=== PATIENT | male | born 1995 | race Caucasian/White ===

== ENCOUNTER 2017-01-14 04:56 | Emergency (ER) | payer SELFPAY ==
[2017-01-14 05:46] VITALS: BP 164/99
[2017-01-14] MEDS ORDERED: Ketorolac 60 MG/2 ML SDV IM ONE (06:05)
--- NOTE | 2017-01-14 06:12 | EDM.PDOC ---
ED HPI GENERAL MEDICAL PROBLEM - General Chief Complaint: ENT Problem Stated Complaint: TOOTH PAIN Time Seen by Provider: 01/14/17 06:03 Source of Information: Reports: Patient, RN Notes Reviewed History Limitations: Reports: No Limitations - History of Present Illness INITIAL COMMENTS - FREE TEXT/NARRATIVE: 21-year-old gentleman presents emergency department day complaint of dental pain he broke his tooth several months ago however over the last couple days he has had increased pain and fevers Right Face Pain Score (Numeric/FACES): 9 - Related Data Allergies Allergy/AdvReac Type Severity Reaction Status Date / Time Bleach (Sodium Hypochlorite) Allergy Blisters Verified 01/14/17 05:47 cephalexin monohydrate Allergy Blisters Verified 01/14/17 05:47 [From Keflex] codeine Allergy Anaphylactic Verified 01/14/17 05:47 Shock Home Meds: Home Meds Acetaminophen [Tylenol] 650 mg PO Q6H PRN 01/14/17 [History] Ibuprofen 600 mg PO Q6H PRN 01/14/17 [History] Past Medical History Respiratory History: Reports: Asthma, Bronchitis, Recurrent, Pneumonia, Recurrent Musculoskeletal History: Reports: Fracture Other Neuro History: lac to head cleaned out in surgery in the past. Endocrine/Metabolic History: Reports: Hypothyroidism, Obesity/BMI 30+ Dermatologic History: Reports: Psoriasis - Past Surgical History HEENT Surgical History: Reports: Other (See Below) Other HEENT Surgeries/Procedures: dental fracture Social & Family History - Tobacco Use Smoking Status *Q: Never Smoker - Caffeine Use Caffeine Use: Reports: Coffee, Energy Drinks, Soda - Recreational Drug Use Recreational Drug Use: No ED ROS ENT - Review of Systems Review Of Systems: See Below Constitutional: Reports: Fever, Chills HEENT: Reports: Dental Pain Respiratory: Reports: No Symptoms Cardiovascular: Reports: No Symptoms GI/Abdominal: Reports: No Symptoms : Reports: No Symptoms ED EXAM, ENT - Physical Exam Exam: See Below Text/Narrative:: Mouth mucosa is moist and pink he does have fractured tooth #17 he is tender to the touch around the tooth Exam Limited By: No Limitations General Appearance: Alert, WD/WN, No Apparent Distress Eye Exam: Bilateral Eye: Normal Inspection Head: Atraumatic, Normocephalic Neck: Normal Inspection, Supple, Non-Tender, Full Range of Motion Respiratory/Chest: No Respiratory Distress, Lungs Clear, Normal Breath Sounds, No Accessory Muscle Use Cardiovascular: Regular Rate, Rhythm, No Murmur Course - Vital Signs Last Recorded V/S: Last Vital Signs Temp 97.7 F 01/14/17 05:44 Pulse 74 01/14/17 05:44 Resp 16 01/14/17 05:44 BP 164/99 H 01/14/17 05:44 Pulse Ox 96 01/14/17 05:44 - Orders/Labs/Meds Meds: Medications Discontinued Medications Generic Name Dose Route Start Last Admin Trade Name Ismael PRN Reason Stop Dose Admin Ketorolac Tromethamine 60 mg 01/14/17 06:05 Toradol IM 01/14/17 06:06 ONETIME ONE Departure - Departure Time of Disposition: 06:11 Disposition: Home, Self-Care 01 Condition: Good Clinical Impression: Dental abscess - Discharge Information Referrals: PCP,None [Primary Care Provider] - Additional Instructions: Take full course of antibiotics, continue to use ibuprofen for pain control, for breakthrough pain use hydrocodone please report to the dental clinic Tuesday at 8:15 - Assessment/Plan Plan: Assessment Acuity = acute Site and laterality = fractured tooth #17 concern for development of dental abscess Etiology = caries Manifestations = none Location of injury = Home Lab values = none Plan Placed on Augmentin 875 by mouth twice a day 10 days, hydrocodone 5/325 one tab by mouth 3 times a day when necessary total #10 referral set up to dental clinic for January 17 8:15 in the morning Patient was in agreement with the plan all questions were answered, they were instructed to return to the emergency department or call for worsening symptoms. This note was dictated using [email or web address] voice recognition software please call with any questions.
== END 2017-01-14 06:49 | disposition home or self-care (01) ==
LOC: JP.ED 04:56
DX: K04.7 Periapical abscess without sinus (principal); K03.81 Cracked tooth; Z88.5 Allergy status to narcotic agent; Z88.1 Allergy status to other antibiotic agents; Z91.09 Other allergy status, other than to drugs and biological substances; J45.909 Unspecified asthma, uncomplicated
CPT/HCPCS: 96372; 99283; J1885

== ENCOUNTER 2018-09-04 19:48 | Emergency (ER) | payer SELFPAY ==
[2018-09-04 20:47] VITALS: BP 140/89
--- NOTE | 2018-09-04 21:02 | EDM.PDOC ---
ED HPI GENERAL MEDICAL PROBLEM - General Chief Complaint: Skin Complaint Stated Complaint: RASH Time Seen by Provider: 09/04/18 20:50 Source of Information: Reports: Patient, Old Records History Limitations: Reports: No Limitations - History of Present Illness INITIAL COMMENTS - FREE TEXT/NARRATIVE: 22 yo [place] Now has a diffuse itchy rash scattered over areas that were immersed. He has no trouble breathing or swallowing. No self tx. Onset: Today, Gradual Onset Date: 09/04/18 Duration: Hour(s):, Getting Worse Location: Reports: Generalized Quality: Reports: Other (pruritic) Severity: Moderate Improves with: Reports: None Worsens with: Reports: Other (time as new bumps erupt) Context: Reports: Other ([place] local [place] lately[place] Associated Symptoms: Reports: No Other Symptoms Treatments LENS BLOCKER: Reports: Other (see below) (none) - Related Data Allergies Allergy/AdvReac Type Severity Reaction Status Date / Time Bleach (Sodium Hypochlorite) Allergy Blisters Verified 01/14/17 05:47 cephalexin monohydrate Allergy Blisters Verified 01/14/17 05:47 [From Keflex] codeine Allergy Anaphylactic Verified 01/14/17 05:47 Shock Home Meds: Home Meds Acetaminophen [Tylenol] 650 mg PO Q6H PRN 01/14/17 [History] Ibuprofen 600 mg PO Q6H PRN 01/14/17 [History] Past Medical History Respiratory History: Reports: Asthma, Bronchitis, Recurrent, Pneumonia, Recurrent Musculoskeletal History: Reports: Fracture Other Neuro History: lac to head cleaned out in surgery in the past. Endocrine/Metabolic History: Reports: Hypothyroidism, Obesity/BMI 30+ Dermatologic History: Reports: Psoriasis - Past Surgical History HEENT Surgical History: Reports: Other (See Below) Other HEENT Surgeries/Procedures: dental fracture Social & Family History - Caffeine Use Caffeine Use: Reports: Coffee, Energy Drinks, Soda ED ROS GENERAL - Review of Systems Review Of Systems: See Below Constitutional: Reports: No Symptoms HEENT: Reports: No Symptoms Respiratory: Reports: No Symptoms Cardiovascular: Reports: No Symptoms GI/Abdominal: Reports: No Symptoms : Reports: No Symptoms Skin: Reports: Pruritis, Rash, Erythema Neurological: Reports: No Symptoms ED EXAM, SKIN/RASH Exam: See Below Exam Limited By: No Limitations General Appearance: Alert, WD/WN, No Apparent Distress, Obese Eye Exam: Bilateral Eye: Normal Inspection Ears: Normal External Exam, Normal Canal, Hearing Grossly Normal Nose: Normal Inspection, No Blood Throat/Mouth: Normal Inspection, Normal Lips, Normal Oropharynx, Normal Voice, No Airway Compromise Head: Atraumatic, Normocephalic Neck: Normal Inspection Respiratory/Chest: No Respiratory Distress, Lungs Clear, Normal Breath Sounds, No Accessory Muscle Use Cardiovascular: Regular Rate, Rhythm, No Edema Back Exam: Normal Inspection. No: CVA Tenderness (R), CVA Tenderness (L) Extremities: Normal Inspection, Normal Range of Motion, Non-Tender, No Pedal Edema Neurological: Alert, Oriented, CN II-XII Intact, Normal Cognition, No Motor/ Sensory Deficits Psychiatric: Normal Affect, Normal Mood Skin: Warm, Dry, Intact, Normal Color, Rash (numerous, erythematous papules on trunk and extrems, not neck or head). No: No Rash Location, Skin: Abdomen, Back, Upper Extremity, Right, Upper Extremity, Left, Lower Extremity, Right, Lower Extremity, Left Characteristics: Papular, Erythematous Associated features: Induration. No: Warmth, Tenderness Course - Vital Signs Last Recorded V/S: Last Vital Signs Temp 36.4 C 09/04/18 20:55 Pulse 91 09/04/18 20:55 Resp 16 09/04/18 20:55 BP 140/89 09/04/18 20:55 Pulse Ox 96 09/04/18 20:55 Departure - Departure Time of Disposition: 21:01 Disposition: Home, Self-Care 01 Condition: Good Clinical Impression: Swimmers' itch - Discharge Information *PRESCRIPTION DRUG MONITORING PROGRAM REVIEWED*: No *COPY OF PRESCRIPTION DRUG MONITORING REPORT IN PATIENT ESPERANZA: No Instructions: Swimmer's Itch Referrals: PCP,None [Primary Care Provider] - Additional Instructions: Apply calamine lotion to each of the welts. Take diphenhydramine 75 mg every 4 hrs as needed for itch. Avoid scatching if possible. Recheck with your doctor as needed.
== END 2018-09-04 21:17 | disposition home or self-care (01) ==
LOC: JP.ED 19:48
DX: B65.3 Cercarial dermatitis (principal); E66.9 Obesity, unspecified; Z68.41 Body mass index [BMI] 40.0-44.9, adult; Z88.5 Allergy status to narcotic agent
CPT/HCPCS: 99282

== ENCOUNTER 2018-10-18 07:34 | Emergency (ER) | payer OTHER ==
[2018-10-18 07:52] VITALS: BP 145/89; PULSE 118
[2018-10-18] MEDS ORDERED: Ibuprofen 600 MG Tab PO ONE (08:04)
--- NOTE | 2018-10-18 08:08 | EDM.PDOC ---
ED HPI GENERAL MEDICAL PROBLEM - General Chief Complaint: ENT Problem Stated Complaint: SORE THROAT, FEVER, DEHYDRATED Time Seen by Provider: 10/18/18 08:03 Source of Information: Reports: Patient History Limitations: Reports: No Limitations - History of Present Illness INITIAL COMMENTS - FREE TEXT/NARRATIVE: pt arrived with a sore throat that started yesterday. He is running a temp and is having alot of body aches. Onset: Other ( started yesterday. ) Duration: Hour(s): Location: Reports: Neck, Other (pt has a very bad sore throat. ) Throat Pain Score (Numeric/FACES): 10 - Related Data Allergies Allergy/AdvReac Type Severity Reaction Status Date / Time Bleach (Sodium Hypochlorite) Allergy Blisters Verified 10/18/18 07:46 cephalexin monohydrate Allergy Blisters Verified 10/18/18 07:46 [From Keflex] codeine Allergy Anaphylactic Verified 10/18/18 07:46 Shock Home Meds: Home Meds NK [No Known Home Meds] 10/18/18 [History] Past Medical History Respiratory History: Reports: Asthma, Bronchitis, Recurrent, Pneumonia, Recurrent Musculoskeletal History: Reports: Fracture Other Neuro History: lac to head cleaned out in surgery in the past. Endocrine/Metabolic History: Reports: Hypothyroidism, Obesity/BMI 30+ Dermatologic History: Reports: Psoriasis - Past Surgical History HEENT Surgical History: Reports: Other (See Below) Other HEENT Surgeries/Procedures: dental fracture Social & Family History - Tobacco Use Smoking Status *Q: Never Smoker Second Hand Smoke Exposure: No - Caffeine Use Caffeine Use: Reports: Energy Drinks, Soda - Alcohol Use Days Per Week of Alcohol Use: 0 - Recreational Drug Use Recreational Drug Use: No ED ROS ENT - Review of Systems Review Of Systems: See Below Constitutional: Reports: Fever, Chills, Malaise, Other (pt states this started yesterday. ) HEENT: Reports: Throat Pain, Throat Swelling Respiratory: Reports: No Symptoms Cardiovascular: Reports: No Symptoms Endocrine: Reports: No Symptoms GI/Abdominal: Reports: No Symptoms : Reports: No Symptoms Musculoskeletal: Reports: No Symptoms Skin: Reports: No Symptoms ED EXAM, ENT - Physical Exam Exam: See Below Text/Narrative:: pt arrived with a sore throat which started yesterday. He is spiking fevers. Exam Limited By: No Limitations General Appearance: Alert, Moderate Distress Ears: Normal TMs Nose: Normal Inspection Mouth/Throat: Other (pt has marked swelling in the throat with alot of exudate. ) Head: Atraumatic Neck: Lymphadenopathy (R), Lymphadenopathy (L) Respiratory/Chest: No Respiratory Distress Cardiovascular: Regular Rate, Rhythm GI/Abdominal: Soft, Non-Tender (Male) Exam: Deferred Rectal (Males) Exam: Deferred Back: Normal Inspection Extremities: Normal Inspection Neurological: Alert, Oriented, Normal Cognition Course - Vital Signs Last Recorded V/S: Last Vital Signs Temp 38.6 C H 10/18/18 08:09 Pulse 118 H 10/18/18 07:50 Resp 16 10/18/18 07:50 BP 145/89 H 10/18/18 07:50 Pulse Ox 95 10/18/18 07:50 - Orders/Labs/Meds Labs: Laboratory Tests 10/18/18 10/18/18 Range/Units 08:21 08:21 WBC 33.1 H* (4.5-11.0) K/uL RBC 5.07 (4.30-5.90) M/uL Hgb 14.7 (12.0-15.0) g/dL Hct 44.0 (40.0-54.0) % MCV 87 (80-98) fL MCH 29 (27-31) pg MCHC 33 (32-36) % Plt Count 259 (150-400) K/uL Neut % (Auto) 88 H (36-66) % Lymph % (Auto) 4 L (24-44) % [place] % (Auto) 8 H (2-6) % Eos % (Auto) 0 L (2-4) % Baso % (Auto) 0 (0-1) % Monoscreen Negative (NEGATIVE) Meds: Medications Discontinued Medications Generic Name Dose Route Start Last Admin Trade Name Freq PRN Reason Stop Dose Admin Sodium Chloride 1,000 mls @ 999 mls/hr 10/18/18 08:45 10/18/18 08:49 Normal Saline IV 999 mls/hr ASDIRECTED YUE Administration Ampicillin Sodium/Sulbactam 50 mls @ 100 mls/hr 10/18/18 08:40 10/18/18 09:03 Sodium 1.5 gm/ Sodium Chloride IV 10/18/18 09:09 100 mls/hr ONETIME ONE Administration Ibuprofen 600 mg 10/18/18 08:04 10/18/18 08:09 Motrin PO 10/18/18 08:05 600 mg ONETIME ONE Administration Ketorolac Tromethamine 30 mg 10/18/18 08:39 10/18/18 08:56 Toradol IVPUSH 10/18/18 08:40 30 mg ONETIME ONE Administration Methylprednisolone Sodium Succinate 80 mg 10/18/18 08:41 10/18/18 08:59 Solu-Medrol IVPUSH 10/18/18 08:42 80 mg ONETIME ONE Administration - Re-Assessments/Exams Free Text/Narrative Re-Assessment/Exam: 10/18/18 08:15 pt has a neg strept test. his wbc was 33,000. He will be given unisyn iv and tordol, plus 80 mg of solumedrol for the marked swelling. 10/18/18 08:44 Departure - Departure Time of Disposition: 10:30 Disposition: Home, Self-Care 01 Condition: Fair Clinical Impression: Acute bacterial pharyngitis - Discharge Information Instructions: Pharyngitis, [id number] Referrals: PCP,None [Primary Care Provider] - Forms: ED Department Discharge Care Plan Goals: push fluids, tylenol and motrin for fever and discomfort, augmentin 875 bid for 10 days.
[2018-10-18] MEDS ORDERED: Ketorolac 30 MG/ML SDV IVPUSH ONE (08:39)
[2018-10-18] MEDS ORDERED: Ampicillin/Sulbactam Na 1.5 GM in Sodium Chloride 0.9% 50 ML IV ONE (08:40)
[2018-10-18] MEDS ORDERED: methylPREDNISolone Sodium Succinate 40 MG/1 ML SDV IVPUSH ONE (08:41)
[2018-10-18] MEDS ORDERED: Sodium Chloride 0.9% 1,000 ML IV SCH (08:45)
== END 2018-10-18 10:29 | disposition home or self-care (01) ==
LOC: JP.ED 07:34
DX: J02.8 Acute pharyngitis due to other specified organisms (principal); B96.89 Other specified bacterial agents as the cause of diseases classified elsewhere; J45.909 Unspecified asthma, uncomplicated; E66.9 Obesity, unspecified; Z88.0 Allergy status to penicillin; Z88.5 Allergy status to narcotic agent; Z91.048 Other nonmedicinal substance allergy status; Z68.42 Body mass index [BMI] 45.0-49.9, adult
CPT/HCPCS: 36415; 85025; 86308; 87081; 87880; 99282; A9270; J0287; J1885; J2920; J7030; J7050

== ENCOUNTER 2021-01-29 17:52 | Emergency (ER) | payer SELFPAY ==
[2021-01-29 18:19] VITALS: BP 144/93; PULSE 110
[2021-01-29] MEDS ORDERED: Bacitracin Oint 1 GM U/D Packet TOP ONE (18:22)
--- NOTE | 2021-01-29 18:27 | EDM.PDOC ---
ED HPI GENERAL MEDICAL PROBLEM - General Chief Complaint: Laceration Stated Complaint: CUT ON LT POINTER FINGER Time Seen by Provider: 01/29/21 18:10 Source of Information: Reports: Patient History Limitations: Reports: No Limitations - History of Present Illness INITIAL COMMENTS - FREE TEXT/NARRATIVE: 25-year-old male was opening a can and sustained a small laceration on the index finger of the left hand. This happened less than 1 hour ago, it was bleeding persistently so he wanted it checked. Bleeding has now stopped.. No other injury or complaints. Onset: Sudden Duration: Hour(s): (Less than 1 hour) Location: Reports: Upper Extremity, Left Associated Symptoms: Reports: No Other Symptoms Right Finger-Index Pain Score (Numeric/FACES): 1 - Related Data Allergies Allergy/AdvReac Type Severity Reaction Status Date / Time Bleach (Sodium Hypochlorite) Allergy Blisters Verified 01/29/21 18:20 cephalexin monohydrate Allergy Blisters Verified 01/29/21 18:20 [From Keflex] codeine Allergy Anaphylactic Verified 01/29/21 18:20 Shock Home Meds: Home Meds NK [No Known Home Meds] 10/18/18 [History] Past Medical History Respiratory History: Reports: Asthma, Bronchitis, Recurrent, Pneumonia, Recurrent Musculoskeletal History: Reports: Fracture Other Neuro History: lac to head cleaned out in surgery in the past. Endocrine/Metabolic History: Reports: Hypothyroidism, Obesity/BMI 30+ Dermatologic History: Reports: Psoriasis - Past Surgical History HEENT Surgical History: Reports: Other (See Below) Other HEENT Surgeries/Procedures: dental fracture Social & Family History - Tobacco Use Tobacco Use Status *Q: Never Tobacco User - Caffeine Use Caffeine Use: Reports: Energy Drinks, Soda - Recreational Drug Use Recreational Drug Use: No ED ROS GENERAL - Review of Systems Review Of Systems: See Below Constitutional: Denies: Fever, Chills Respiratory: Reports: No Symptoms GI/Abdominal: Reports: No Symptoms Skin: Reports: Other (Laceration left index finger) Neurological: Denies: Paresthesia (No distal numbness) Psychiatric: Reports: No Symptoms ED EXAM, SKIN/RASH Exam: See Below Exam Limited By: No Limitations General Appearance: Alert, No Apparent Distress Head: Atraumatic Respiratory/Chest: No Respiratory Distress Extremities: Other (Remainder of exam is on the left finger. There is a 1 cm, fairly shallow laceration along the border of the nail on the radial side. The nail is not impacted, it does not reach the DIP joint. CMS is intact) Course - Vital Signs Last Recorded V/S: Last Vital Signs Temp 98.2 F 01/29/21 18:19 Pulse 110 H 01/29/21 18:19 Resp 16 01/29/21 18:19 BP 144/93 H 01/29/21 18:19 Pulse Ox 97 01/29/21 18:19 - Orders/Labs/Meds Meds: Medications Discontinued Medications Generic Name Dose Route Start Last Admin Trade Name Freq PRN Reason Stop Dose Admin Bacitracin 1 dose 01/29/21 18:22 01/29/21 18:27 Bacitracin Oint 1 Gm U/D Packet TOP 01/29/21 18:23 1 dose ONETIME ONE Administration - Re-Assessments/Exams Free Text/Narrative Re-Assessment/Exam: 01/29/21 18:26 This laceration is small enough for topical bacitracin and a Band-Aid can be applied and it should heal fine. No repair needed. Departure - Departure Time of Disposition: 18:34 Disposition: Home, Self-Care 01 Clinical Impression: Finger laceration Qualifiers: Encounter type: initial encounter Finger: index finger Damage to nail status: without damage Foreign body presence: without foreign body Laterality: left Qualified Code(s): S61.211A - Laceration without foreign body of left index finger without damage to nail, initial encounter - Discharge Information Instructions: Laceration Care, Adult Referrals: PCP,None [Primary Care Provider] - Forms: ED Department Discharge Care Plan Goals: Keep wound covered and clean while healing, recheck anytime if concerns of infection or not healing satisfactorily. Increase activity as tolerated. Sepsis Event Note (ED) - Evaluation Sepsis Screening Result: No Definite Risk - Focused Exam Vital Signs: Vital Signs Temp Pulse Resp BP Pulse Ox 01/29/21 18:19 98.2 F 110 H 16 144/93 H 97 01/29/21 18:13 98.2 F 110 H 16 144/93 H 97
== END 2021-01-29 18:35 | disposition home or self-care (01) ==
LOC: JP.ED 17:52
DX: S61.211A Laceration without foreign body of left index finger without damage to nail, initial encounter (principal); E03.9 Hypothyroidism, unspecified; Z88.5 Allergy status to narcotic agent; Z88.1 Allergy status to other antibiotic agents; Z91.048 Other nonmedicinal substance allergy status; Z79.899 Other long term (current) drug therapy; W26.8XXA Contact with other sharp object(s), not elsewhere classified, initial encounter
CPT/HCPCS: 99282